=== PATIENT | female | born 1945 | race Caucasian/White ===

== ENCOUNTER 2020-11-13 15:38 | Emergency (ER) | payer OTHER ==
[~2020-11-13] VITALS: Ht 165.1 cm; Wt 81.6 kg
[2020-11-13] MEDS ORDERED: PAXIL10 MG/5 ML (15:59)
[2020-11-13] MEDS ORDERED: SYNTHROID100 MCG (15:59)
[2020-11-13] MEDS ORDERED: CLONAZEPAM1 MG (16:00)
[2020-11-13] MEDS ORDERED: MEMANTINE HCL5 MG (16:00)
[2020-11-13] MEDS ORDERED: AZOR 5-40 MG T1 EACH (16:00)
[2020-11-13] MEDS ORDERED: CHILDREN'S ASPI81 MG (16:01)
[2020-11-13] MEDS ORDERED: PAROXETINE CR25 MG (16:01)
[2020-11-13] MEDS ORDERED: PERCOCET 10-321 EACH PO (22:03)
[2020-11-13] MEDS ORDERED: TAMS0.4C PO (22:03)
[2020-11-13] MEDS ORDERED: CIPRO250 MG PO (22:03)
== END 2020-11-13 22:22 | disposition home or self-care (01) ==
LOC: ER 15:38
DX: N20.1 Calculus of ureter (principal); R10.84 Generalized abdominal pain

== ENCOUNTER 2022-01-05 20:32 | Emergency (ER) | payer OTHER ==
[~2022-01-05] VITALS: Ht 165.1 cm; Wt 81.6 kg
[~2022-01-05 20:32] MED LIST: AZOR 5-40 MG T1 EACH; CHILDREN'S ASPI81 MG; CIPRO250 MG PO; CLONAZEPAM1 MG; MEMANTINE HCL5 MG; PAROXETINE CR25 MG; PAXIL10 MG/5 ML; PERCOCET 10-321 EACH PO; SYNTHROID100 MCG; TAMS0.4C PO
[2022-01-05] MEDS ORDERED: ZOVIRAX800 MG (22:14)
[2022-01-05] MEDS ORDERED: GABAPENTIN300 M2 (22:15)
[2022-01-05] MEDS ORDERED: AMLODIPINE-OLM1 EAC3 (22:16)
== END 2022-01-06 00:05 | disposition home or self-care (01) ==
LOC: ER 20:32
DX: B00.9 Herpesviral infection, unspecified (principal); I10 Essential (primary) hypertension

== ENCOUNTER 2022-01-25 19:07 | Emergency (ER) | payer OTHER ==
[~2022-01-25] VITALS: Ht 162.6 cm; Wt 77.1 kg
[~2022-01-25 19:07] MED LIST changes: +AMLODIPINE-OLM1 EAC3; +GABAPENTIN300 M2; +ZOVIRAX800 MG
[2022-01-25] MEDS ORDERED: ASA81 MG (19:57)
[2022-01-26] MEDS ORDERED: KETO10TA2 PO (02:25)
[2022-01-26] MEDS ORDERED: ULTRAM50 MG PO (02:25)
== END 2022-01-26 02:58 ==
LOC: ER 19:07
DX: R51.9 Headache, unspecified (principal); B00.9 Herpesviral infection, unspecified